=== PATIENT | female | born 1965 | race Caucasian/White ===

== ENCOUNTER 2023-09-28 12:10 | Emergency (ER) | payer OTHER, SELFPAY ==
[2023-09-28 12:13] VITALS: BP 132/92
--- NOTE | 2023-09-28 13:51 | ED.GENMED ---
History of Present Illness
<Christina Grijalva PA-C - Last Filed: 09/29/23 09:03>
General
Chief Complaint: Abdominal Pain
Source: patient and records
Exam Limitations: none
Time Seen by Provider: 09/28/23 13:51
Nursing documentation reviewed up to this point in time: agreed with
Travel History
Have you had any contact with someone who has COVID-19?: No
Do you have any symptoms of coronavirus? Fever > 100 degrees, chills, cough, shortness of breath, sore throat, loss of taste or smell, muscle aches, or headache?: No
History of Present Illness
History of Present Illness:
58 y/o female with PMH of GERD presenting to the emergency department today with periumbilical abdominal pain for the past 3 days. Patient describes the pain as a cramping pain and will wax and wane in severity but is always there. Patient states
that when it started, she thought it was related to the need to have a bowel movement but the pain did not relieve with a bowel movement. Patient states that her appetite is unchanged and patient is able to tolerate food which does not worsen her
pain. Patient states that her pain is worse with sitting up or laughing. Patient has no associated nausea, vomiting, diarrhea, fevers or chills, URI symptoms. Patient has no history of abdominal surgeries other than pyloric stenosis repair as an
. Patient is postmenopausal. Patient denies any dysuria, vaginal discharge. Patient denies any back pain.
Review of Systems
<Christina Grijalva PA-C - Last Filed: 09/29/23 09:03>
Review of Systems
All Other Systems: ROS reviewed and negative except as documented in HPI and ROS
Phy Exam
<Christina Grijalva PA-C - Last Filed: 09/29/23 09:03>
Physical Exam
Physical Exam:
Vitals: Patient is tachycardic, otherwise vital signs are stable
General: Patient is well-appearing, no acute distress
Skin: Warm and dry, no rashes or lesions
Head: Normocephalic, atraumatic
Eyes: Sclera nonicteric
Cardiac: Patient is tachycardic but no murmurs heard on exam, regular rhythm
Pulm: Normal respiratory effort
Abdomen: No palpable masses, patient very tender to palpation diffusely but especially around the epigastrium. Guarding present. Rebound tenderness present. Normoactive bowel sounds.
Neuro: CN II-XII intact, no focal neurologic deficits.
Course
<Christina Grijalva PA-C - Last Filed: 09/29/23 09:03>
Orders/Labs/Results
Orders:
Orders
09/28/23 14:27
Complete Blood Count/With Diff Urgent
Comprehensive Metabolic Panel Urgent
Lipase Urgent
09/28/23 14:37
CT Abd/pelvis W Iv Cont Urgent
Comment:
Reason For Exam: periumbilical ab pain
09/28/23 14:38
Ketorolac [Toradol] 15 mg IV NOW STA
09/28/23 17:04
Pelvis & Transvaginal US [US Pelvis W Transvag Combined] Urgent
Comment:
Reason For Exam: left abdominal pain, left adenexal swelling on CT
09/28/23 18:09
Acetaminophen [Tylenol] 650 mg PO NOW STA
Abnormal Lab Results
09/28/23
14:27
WBC 12.2 H 10^3/uL
(4.8-10.8)
RBC 3.75 L 10^6/uL
(4.20-5.40)
Hgb 11.6 L g/dL
(12.0-16.0)
Hct 35.1 L %
(37.0-47.0)
Absolute Neuts (auto) 9.2 H 10^3/uL
(1.4-6.5)
Absolute Monos (auto) 1.2 H 10^3/uL
(0.1-0.6)
Neutrophils % 75.5 H %
(42.2-75.2)
Lymphocytes % 13.3 L %
(20.5-51.1)
Monocytes % 9.6 H %
(1.7-9.3)
Glucose 102 H mg/dl
(70-99)
09/28/23 14:27
09/28/23 14:27
Vital Signs
Initial and Last Documented VS:
Initial Vital Signs
Temp Pulse Resp BP Pulse Ox
98.5 F 102 20 132/92 98
09/28/23 12:13 09/28/23 12:13 09/28/23 12:13 09/28/23 12:13 09/28/23 12:13
Last Documented Vital Signs
Temp Pulse Resp BP Pulse Ox
99.5 F 88 20 135/81 98
09/28/23 19:51 09/28/23 19:51 09/28/23 18:13 09/28/23 19:51 09/28/23 19:51
<Feliciano South, DO - Last Filed: 09/28/23 20:23>
Orders/Labs/Results
Orders:
Orders
09/28/23 14:27
Complete Blood Count/With Diff Urgent
Comprehensive Metabolic Panel Urgent
Lipase Urgent
09/28/23 14:37
CT Abd/pelvis W Iv Cont Urgent
Comment:
Reason For Exam: periumbilical ab pain
09/28/23 14:38
Ketorolac [Toradol] 15 mg IV NOW STA
09/28/23 17:04
Pelvis & Transvaginal US [US Pelvis W Transvag Combined] Urgent
Comment:
Reason For Exam: left abdominal pain, left adenexal swelling on CT
09/28/23 18:09
Acetaminophen [Tylenol] 650 mg PO NOW STA
Abnormal Lab Results
09/28/23
14:27
WBC 12.2 H 10^3/uL
(4.8-10.8)
RBC 3.75 L 10^6/uL
(4.20-5.40)
Hgb 11.6 L g/dL
(12.0-16.0)
Hct 35.1 L %
(37.0-47.0)
Absolute Neuts (auto) 9.2 H 10^3/uL
(1.4-6.5)
Absolute Monos (auto) 1.2 H 10^3/uL
(0.1-0.6)
Neutrophils % 75.5 H %
(42.2-75.2)
Lymphocytes % 13.3 L %
(20.5-51.1)
Monocytes % 9.6 H %
(1.7-9.3)
Glucose 102 H mg/dl
(70-99)
09/28/23 14:27
09/28/23 14:27
Vital Signs
Initial and Last Documented VS:
Initial Vital Signs
Temp Pulse Resp BP Pulse Ox
98.5 F 102 20 132/92 98
09/28/23 12:13 09/28/23 12:13 09/28/23 12:13 09/28/23 12:13 09/28/23 12:13
Last Documented Vital Signs
Temp Pulse Resp BP Pulse Ox
99.5 F 88 20 135/81 98
09/28/23 19:51 09/28/23 19:51 09/28/23 18:13 09/28/23 19:51 09/28/23 19:51
<Christina Grijalva PA-C - Last Filed: 09/29/23 09:03>
MDM/Problems Addressed
Differential Diagnosis Includes:
Differentials include pancreatitis, appendicitis, gastritis, colitis, ovarian cyst
MDM/Problems Addressed:
abdominal pain
Chronic conditions affecting care: Other (GERD)
<Christina Grijalva PA-C - Last Filed: 09/29/23 09:03>
*Pulse Oximetry
Patient hypoxic: no
*Critical Care Note
Total Time (30-74mins, 75-104mins- exclusive of procedures): Not Applicable
Data Reviewed
Review of Other/Old Records Reveals: Records (No previous records in [facility] to review) and Discharge Summary (No discharge summaries in [facility] to review)
Source: patient and records
<Christina Grijalva PA-C - Last Filed: 09/29/23 09:03>
Patient Management
Escalation/DeEscalation of care consider admission/obs:
58 y/o female with PMH of GERD presenting to the emergency department today with periumbilical abdominal pain for the past 3 days. Patient and patient has worsening pain with laughing or movement. On physical exam, patient has guarding, has
rebound tenderness. Her vital signs are stable, she has mild leukocytosis, her CMP was unremarkable. Her CT here in emergency department demonstrated mild inflammatory stranding in the left Marek pelvis which may represent mild sigmoid
diverticulitis. Suspect this is most likely cause of her symptoms as it is consistent with her presentation, however the CT also showed left adnexal soft tissue thickening and considering this is a site of patient's pain, we will obtain a pelvic
ultrasound here in emergency department to better evaluate her symptoms. Ultrasound the emergency department demonstrated left hydro's phalanx. Patient's history and physical is most consistent with diverticulitis, will treat with Augmentin.
Patient stable for discharge
ED Attending Note
<Christina Grijalva PA-C - Last Filed: 09/29/23 09:03>
-
Portions of this chart may have been created with voice recognition software.� Occasional wrong word or��sound alike� substitutions may have occurred due to the inherent limitations of voice recognition software.
<Feliciano South DO - Last Filed: 09/28/23 20:23>
ED Attending Note
Patient seen and examined by attending physician: Yes
I performed a history and physical exam of patient and discussed management with resident, I reviewed resident's note and agree with documented findings and plan of care.: Yes
ED Attending Note:
I have reviewed and agree with history and treatment by Christina Grijalva. My exam revealed diffuse abdominal tenderness with rebound. CT abdomen pelvis pending. CT consistent with diverticulitis, but torsion cannot be ruled out. Ultrasound shows
hydrosalpinx, otherwise no acute findings. Do not suspect PID. Patient stable for discharge. Treat with Augmentin.
Discharge Plan
Departure
Patient Disposition: Home (Routine Discharge)
Date of Disposition: 09/28/23
Time of Disposition: 20:02
Patient with high blood pressure during this ER visit?: Yes
Condition: Good
Discharge Problem:
Diverticulitis
Instructions: Diverticulitis (DC), Abdominal Pain, BLOOD PRESSURE
Prescriptions:
New
amoxicillin-pot clavulanate 875-125 mg tablet
1 tab PO BID Qty: 7 0RF
Referrals:
Justin Clay DO [Family Provider] -
Stand Alone Forms: Return to Work
Activity Restrictions/Additional Instructions:
Please alternate Tylenol and Motrin for pain control.
We have sent antibiotic to your pharmacy called Augmentin. Please take 1 tablet twice daily for 7 days.
Please follow up with your primary care provider.
PLEASE RETURN TO THE EMERGENCY DEPARTMENT SHOULD YOU EXPERIENCE AN ACUTE WORSENING OF YOUR PAIN, FEVERS OR CHILLS, INTRACTABLE VOMITING, SYNCOPAL EPISODES, SHORTNESS OF BREATH, OR OTHER CONCERNING SIGNS OR SYMPTOMS.
Interventions
Interventions:
*Risk Screen - Suicide Last Done: 09/28/23 12:13
*General Assessment Last Done: 09/28/23 12:13
*Neglect/Abuse Screening Last Done: 09/28/23 12:13
ED- Fall Risk Assessment Last Done: 09/28/23 20:19
*ED COVID-19 Vaccine History Last Done: 09/28/23 20:19
*Nursing Disposition Last Done: 09/28/23 20:19
UA-Aggxay-Cqgceepksg Assessment Last Done: 09/28/23 14:26
Discharge Date and Time
Discharge Date/Time: 09/28/23 20:34
Print Language: PORTUGUESE
[2023-09-28 14:26] VITALS: BMI 33.4
[2023-09-28 14:35] LABS: % Basophils 0.4 % (0-2); % Eosinophils 0.9 % (0-6); % Immature Granulocytes 0.3 % (0-0.5); % Lymphocytes 13.3 % (20.5-51.1); % Monocytes 9.6 % (1.7-9.3); % Neutrophils 75.5 % (42.2-75.2); Absolute Basophils 0.1 10^3/uL (0-0.2); Absolute Eosinophils 0.1 10^3/uL (0-0.7); Absolute Lymphocytes 1.6 10^3/uL (1.2-3.4); Absolute Monocytes 1.2 10^3/uL (0.1-0.6); Absolute Neutrophils 9.2 10^3/uL (1.4-6.5); Hematocrit 35.1 % (37.0-47.0); Hemoglobin 11.6 g/dL (12.0-16.0); Mean Corpuscular Hgb 30.9 pg (27.0-31.0); Mean Corpuscular Volume 93.6 fL (81.0-99.0); Mean Platelet Volume 9.2 fL (7.4-10.4); Nucleated Red Blood Cells % 0 %; Platelet Count 222 10^3/uL (130-400); Red Blood Cell Count 3.75 10^6/uL (4.20-5.40); Red Cell Dist. Width 13.5 % (11.5-14.5); White Blood Cell Count 12.2 10^3/uL (4.8-10.8)
[2023-09-28] MEDS: TORADOL 15 MG IV (14:58)
[2023-09-28 15:07] LABS: ALT (SGPT) 16 U/L (0-35); AST (SGOT) 19 U/L (14-36); Albumin 4.1 g/dl (3.5-5.0); Alkaline Phosphatase 79 U/L (38-126); Blood Urea Nitrogen 10 mg/dl (7-17); Calcium 9.3 mg/dl (8.4-10.2); Carbon Dioxide 26 mmol/L (22-30); Chloride 106 mmol/L (98-107); Estimated Creatinine Clearance 94 ml/min; Glucose 102 mg/dl (70-99); Lipase 66 U/L (23-300); Potassium 4.1 mmol/L (3.5-5.1); Sodium 136 mmol/L (135-145); Total Bilirubin 0.5 mg/dl (0.2-1.3); Total Protein 6.8 g/dl (6.3-8.2); eGFR > 60.00
[2023-09-28 18:13] VITALS: BP 139/76
[2023-09-28] MEDS: TYLENOL 650 MG PO (18:13)
[2023-09-28 19:51] VITALS: BP 135/81
== END 2023-09-28 20:34 | disposition home or self-care (01) ==
LOC: EMR 12:10
PROVIDERS: Physician Assistant; EMERGENCY PHYSICIAN Emergency Medicine; FAMILY PHYSICIAN Family Medicine
DX: K57.92 Diverticulitis of intestine, part unspecified, without perforation or abscess without bleeding (principal); R03.0 Elevated blood-pressure reading, without diagnosis of hypertension; K21.9 Gastro-esophageal reflux disease without esophagitis
CPT/HCPCS: 99285; 96374; 74177; 76830; 76856; 80053; 83690; 85025; Q9967

== ENCOUNTER → 2024-03-16 15:04 | Outpatient (REF) | payer OTHER, SELFPAY | LOC: HWWDC 15:04 | PROVIDERS: ATTENDING PHYSICIAN Obstetrics & Gynecology; FAMILY PHYSICIAN Family Medicine | DX: Z12.31 Encounter for screening mammogram for malignant neoplasm of breast (principal) | CPT/HCPCS: 77063; 77067 ==

== ENCOUNTER → 2024-08-11 15:08 | Outpatient (REF) | payer OTHER, SELFPAY | LOC: HWRAD 15:08 | PROVIDERS: ATTENDING PHYSICIAN Physician Assistant Medical; FAMILY PHYSICIAN Family Medicine | DX: E04.1 Nontoxic single thyroid nodule (principal) | CPT/HCPCS: 76536 ==